=== PATIENT | male | born 1960 ===

== ENCOUNTER 2016-08-30 14:04 | Emergency (ER) | payer MEDICAID, OTHER ==
[2016-08-30 14:04] VITALS: BMI 23.6
[2016-08-30 14:27] VITALS: BP 133/86; PULSE 73; RESP 16; TEMP 98.2; O2SAT 98
--- NOTE | 2016-08-30 14:49 | C.PDOC ---
History Of Present Illness 55 year old patient, with a past medical history of Anxiety, GERD, Hiatal Hernia , Migraine, Paranoia, Rheumatoid Arthritis, and Schizophrenia, presents to the ED complaining of swelling of a large right inguinal-scrotal hernia. Patient was seen a year ago by Dr. Huffman for the same complaint. Patient refused surgery at that time. He notes the hernia comes and goes, but is not incarcerated. Patient has been seen here multiple times for a psych related complaint. Patient denies fever, nausea, vomiting, abdominal pain, or urinary symptoms. Time Seen by Provider: 08/30/16 14:37 Chief Complaint (Nursing): Abdominal Pain History Per: Patient History/Exam Limitations: no limitations Onset/Duration Of Symptoms: Worse Since (today) Current Symptoms Are (Timing): Still Present Context: Other Severity: None Pain Scale Rating Of: 0 Exacerbating Factors: None Alleviating Factors: None Last Bowel Movement: Today Recent travel outside of the [place]: No Past Medical History Reviewed: Historical Data, Nursing Documentation, Vital Signs Vital Signs: Last Vital Signs Temp 98.2 F 08/30/16 14:24 Pulse 73 08/30/16 14:24 Resp 16 08/30/16 14:24 BP 133/86 08/30/16 14:24 Pulse Ox 98 08/30/16 15:20 - Medical History PMH: Anxiety, GERD, Hiatal Hernia, Migraine, Paranoia, Rheumatoid Arthritis, Schizophrenia Surgical History: Appendectomy Family History: States: Unknown Family Hx - Social History Hx Tobacco Use: Yes Hx Alcohol Use: No Hx Substance Use: No - Immunization History Hx Tetanus Toxoid Vaccination: No Hx Influenza Vaccination: No Hx Pneumococcal Vaccination: No Review Of Systems Except As Marked, All Systems Reviewed And Found Negative. Constitutional: Negative for: Fever Gastrointestinal: Negative for: Nausea, Vomiting, Abdominal Pain Genitourinary: Positive for: Other (large inguinal scrotal hernia). Negative for: Dysuria, Hematuria Physical Exam - Physical Exam Appears: Non-toxic, No Acute Distress Skin: Warm, Dry Head: Atraumatic, Normacephalic Neck: Normal ROM, Supple Chest: Symmetrical Cardiovascular: Rhythm Regular Respiratory: Normal Breath Sounds, No Rales, No Rhonchi, No Wheezing Gastrointestinal/Abdominal: Soft, No Tenderness, No Guarding, No Rebound Back: Normal Inspection Male Genital: No Testicular Tenderness, No Testicular Swelling, No Inguinal Tenderness, No Inguinal Swelling, No Scrotal Swelling, Other (large right scrotal hernia; non-tender; reducible) Extremity: Normal ROM Neurological/Psych: Oriented x3, Normal Speech, Normal Cognition Gait: Steady ED Course And Treatment O2 Sat by Pulse Oximetry: 98 (room air) Pulse Ox Interpretation: Normal Progress Note: Patient is discharged and instructed to follow up with Dr. Huffman in the clinic for further evaluation. Return if symptoms worsen. On re- evaluation abdomen soft non-tender Reassessment Condition: Unchanged Disposition - Disposition Referrals: [facility] [Outside] [facility] [Outside] Yisel Huffman MD [Staff Provider] - Disposition: HOME/ ROUTINE Disposition Time: 15:45 Condition: STABLE Additional Instructions: Follow up with Dr Huffman for further evaluation Follow up with clinic for further evaluation Return to ED if any increase symptoms Instructions: Inguinal Hernia (ED) - POA Present On Arrival: None - Clinical Impression Clinical Impression: Inguinal hernia - PA / ARCGIS DEVELOPER / Resident Statement MD/DO has reviewed & agrees with the documentation as recorded. - Scribe Statement The provider has reviewed the documentation as recorded by the Scribe Brea Galo All medical record entries made by the Scribe were at my direction and personally dictated by me. I have reviewed the chart and agree that the record accurately reflects my personal performance of the history, physical exam, medical decision making, and the department course for this patient. I have also personally directed, reviewed, and agree with the discharge instructions and disposition.
== END 2016-08-30 15:11 | disposition home or self-care (01) ==
LOC: C.ER 14:04
DX: K40.90 Unilateral inguinal hernia, without obstruction or gangrene, not specified as recurrent (principal); M06.9 Rheumatoid arthritis, unspecified

== ENCOUNTER 2016-10-20 13:35 | Emergency (ER) | payer MEDICAID, OTHER ==
[2016-10-20 13:35] VITALS: BMI 23.6
[2016-10-20 13:41] VITALS: BP 150/96; PULSE 76; RESP 18; TEMP 98.1; O2SAT 98
--- NOTE | 2016-10-20 14:06 | C.PDOC ---
History Of Present Illness 56 yo mlae, hx of schziophrenia, presents requesting refills of his medications. pt has had multiple visits for simlar. no si/hi/hallucinations. Time Seen by Provider: 10/20/16 13:45 Chief Complaint (Nursing): Med Refill Past Medical History Reviewed: Historical Data, Vital Signs Vital Signs: Last Vital Signs Temp 98.1 F 10/20/16 13:38 Pulse 76 10/20/16 13:38 Resp 18 10/20/16 13:38 BP 150/96 H 10/20/16 13:38 Pulse Ox 98 10/20/16 14:08 - Medical History PMH: Anxiety, Depression, GERD, Hiatal Hernia, Migraine, Paranoia, Rheumatoid Arthritis, Schizophrenia Denies: Chronic Kidney Disease Surgical History: Appendectomy Family History: States: Unknown Family Hx - Social History Hx Tobacco Use: Yes Hx Alcohol Use: No Hx Substance Use: No - Immunization History Hx Tetanus Toxoid Vaccination: No Hx Influenza Vaccination: No Hx Pneumococcal Vaccination: No Review Of Systems Except As Marked, All Systems Reviewed And Found Negative. Physical Exam - Physical Exam Appears: Well, Non-toxic, Other (listen to ipod in nad) Skin: Warm, Dry Head: Atraumatic, Normacephalic Neck: Normal Cardiovascular: Rhythm Regular Respiratory: Normal Breath Sounds Neurological/Psych: Oriented x3, Normal Speech, Other (no si hi ) ED Course And Treatment O2 Sat by Pulse Oximetry: 98 Medical Decision Making Medical Decision Making: med refills Disposition - Disposition Referrals: [facility] [Outside] [facility] [Outside] [facility] [Outside] Disposition: HOME/ ROUTINE Disposition Time: 14:07 Condition: STABLE Additional Instructions: please follow up with your doctor. returnto er with worsening symptoms or concerns. Prescriptions: Benztropine [Cogentin] 1 mg PO DAILY #14 tab Famotidine [Pepcid] 20 mg PO DAILY #20 tab Perphenazine 8 mg PO DAILY #14 tab Perphenazine 16 mg PO DAILY #14 tab Instructions: Medicine Refill (ED) - Clinical Impression Clinical Impression: Medication refill
== END 2016-10-20 14:23 | disposition home or self-care (01) ==
LOC: C.ER 13:35
DX: Z76.0 Encounter for issue of repeat prescription (principal)

== ENCOUNTER 2016-11-29 08:18 | Emergency (ER) | payer MEDICAID, OTHER ==
[2016-11-29 08:18] VITALS: BMI 23.6
[2016-11-29 08:25] VITALS: BP 146/89; PULSE 74; RESP 18; TEMP 98; O2SAT 97
--- NOTE | 2016-11-29 08:48 | C.PDOC ---
History Of Present Illness 56 y/o male presents to ED who states he ran out of his prescription for Pepcid. Denies any physical complaints. Notes he cannot afford OTC Pepcid. Time Seen by Provider: 11/29/16 08:23 Chief Complaint (Nursing): Med Refill History Per: Patient History/Exam Limitations: no limitations Current Symptoms Are (Timing): Still Present Pain Scale Rating Of: 0 Recent travel outside of the [place]: No Past Medical History Reviewed: Historical Data, Nursing Documentation, Vital Signs Vital Signs: Last Vital Signs Temp 98 F 11/29/16 08:21 Pulse 74 11/29/16 08:21 Resp 18 11/29/16 08:21 BP 146/89 11/29/16 08:21 Pulse Ox 97 11/29/16 08:55 - Medical History PMH: Anxiety, Depression, GERD, Hiatal Hernia, Migraine, Paranoia, Rheumatoid Arthritis, Schizophrenia Surgical History: Appendectomy Family History: States: Unknown Family Hx - Social History Hx Tobacco Use: Yes Hx Alcohol Use: No Hx Substance Use: No - Immunization History Hx Tetanus Toxoid Vaccination: No Hx Influenza Vaccination: No Hx Pneumococcal Vaccination: No Review Of Systems Except As Marked, All Systems Reviewed And Found Negative. Constitutional: Negative for: Fever, Chills Cardiovascular: Negative for: Chest Pain Respiratory: Negative for: Cough, Shortness of Breath Gastrointestinal: Negative for: Nausea, Vomiting, Abdominal Pain Skin: Negative for: Rash Physical Exam - Physical Exam Appears: Non-toxic, No Acute Distress Skin: Normal Color, Warm, Dry Head: Atraumatic, Normacephalic Oral Mucosa: Moist Chest: Symmetrical Cardiovascular: Rhythm Regular, No Murmur Respiratory: Normal Breath Sounds, No Rales, No Rhonchi, No Wheezing Gastrointestinal/Abdominal: Soft, No Tenderness, No Guarding, No Rebound Back: Normal Inspection Extremity: Normal ROM, Capillary Refill (< 2 sec.) Neurological/Psych: Oriented x3, Normal Speech, Normal Cognition ED Course And Treatment O2 Sat by Pulse Oximetry: 97 (RA) Pulse Ox Interpretation: Normal Progress Note: Pt given prescription for Pepcid. In no acute distress. Advised f /u with clinic. Reassessment Condition: Improved Disposition Counseled Patient/Family Regarding: Need For Followup, Rx Given - Disposition Referrals: [facility] [Outside] [facility] [Outside] Disposition: HOME/ ROUTINE Disposition Time: 09:00 Condition: STABLE Additional Instructions: Follow up with clinic for further evaluation Prescriptions: Famotidine [Pepcid AC] 20 mg PO BID #30 tablet Instructions: Medicine Refill (ED) Forms: [place] [employer] (Belgian) - POA Present On Arrival: None - Clinical Impression Clinical Impression: Medication refill, GERD (gastroesophageal reflux disease) - PA / REFRIGERATOR CABINETMAKER / Resident Statement MD/DO has reviewed & agrees with the documentation as recorded. - Scribe Statement The provider has reviewed the documentation as recorded by the Jaisonibdemian Mcdonald All medical record entries made by the June were at my direction and personally dictated by me. I have reviewed the chart and agree that the record accurately reflects my personal performance of the history, physical exam, medical decision making, and the department course for this patient. I have also personally directed, reviewed, and agree with the discharge instructions and disposition.
== END 2016-11-29 09:04 | disposition home or self-care (01) ==
LOC: C.ER 08:18
DX: Z76.0 Encounter for issue of repeat prescription (principal); K21.9 Gastro-esophageal reflux disease without esophagitis

== ENCOUNTER 2017-07-20 20:58 | Emergency (ER) | payer MEDICAID, OTHER ==
[2017-07-20 20:59] VITALS: BMI 24.1
[2017-07-20 21:04] VITALS: RESP 18
[2017-07-20 21:26] LABS: BASO # 0.1 K/uL (0.0-0.2); BASO % 0.7 % (0.0-2.0); EOS # 0.3 K/uL (0.0-0.7); EOS % 2.6 % (0.0-4.0); HEMOGLOBIN 14.2 g/dL (12.0-18.0); LYMPH # 2.8 K/uL (1.0-4.3); LYMPH % 28.1 % (20.0-40.0); MEAN CELL VOLUME 95.8 fL (80.0-94.0); MEAN CORPUSCULAR HEMOGLOBIN 33.1 pg (27.0-31.0); MEAN CORPUSCULAR HGB CONC 34.5 g/dL (33.0-37.0); MEAN PLATELET VOLUME 8.4 fL (7.2-11.7); MONO # 0.8 K/uL (0.0-0.8); MONO % 8.1 % (0.0-10.0); NEUT # 6.1 K/uL (1.8-7.0); NEUT % 60.5 % (50.0-75.0); RBC 4.28 Mil/uL (4.40-5.90); RED CELL DISTRIBUTION WIDTH 12.6 % (11.5-14.5); WHITE BLOOD COUNT 10.1 K/uL (4.8-10.8)
[2017-07-20 21:36] LABS: URINE BILIRUBIN NEGATIVE (NEGATIVE); URINE BLOOD 1+ (NEGATIVE); URINE CLARITY Clear (Clear); URINE COLOR Colorless (YELLOW); URINE GLUCOSE (UA) NORMAL (Normal); URINE LEUKOCYTE ESTERASE NEG Leu/uL (Negative); URINE PROTEIN NEGATIVE (NEGATIVE); URINE UROBILINOGEN NORMAL mg/dL (0.2-1.0)
[2017-07-20 21:48] LABS: BARBITURATES, UR NEGATIVE (NEGATIVE); BENZODIAZEPINES, UR NEGATIVE (NEGATIVE); OPIATES, UR NEGATIVE (NEGATIVE); PHENCYCLIDINE, UR NEGATIVE (NEGATIVE)
[2017-07-20 21:53] LABS: ALB/GLOB RATIO 1.4 (1.0-2.1); ALBUMIN 3.9 g/dL (3.5-5.0); ALT/SGPT 18 U/L (21-72); AST/SGOT 21 U/L (17-59); BLOOD UREA NITROGEN 14 mg/dL (9-20); CALCIUM 9.2 mg/dl (8.6-10.4); GFR AFRICAN-AMERICAN > 60; GFR NON-AFRICAN AMERICAN > 60
[2017-07-20 22:24] VITALS: BP 144/91; PULSE 68; TEMP 98.3; O2SAT 97
--- NOTE | 2017-07-20 23:51 | C.PDOC ---
History Of Present Illness 56 years old male with Hx of Schizophrenia presents to ED with complaints of feeling anxious after having a verbal argument with his sister which he lives with. Denies SI, HI, hallucinations, or any other physical complaints. Patient states he does not feel any danger being at home. Chief Complaint (Nursing): Psychiatric Evaluation History Per: Patient History/Exam Limitations: no limitations Onset/Duration Of Symptoms: Hrs Current Symptoms Are (Timing): Still Present Suicide/Self Injury Attempted (Context): None Modifying Factor(s): None Associated Symptoms: Anxiety. denies: Suicidal Thoughts, Suicidal Plan Involuntary Hold By: None Recent travel outside of the [place]: No Past Medical History Reviewed: Historical Data, Nursing Documentation, Vital Signs Vital Signs: Last Vital Signs Temp 98.3 F 07/20/17 22:23 Pulse 68 07/20/17 22:23 Resp 18 07/20/17 22:23 BP 144/91 H 07/20/17 22:23 Pulse Ox 97 07/20/17 23:52 - Medical History PMH: Anxiety, Depression, GERD, Hiatal Hernia, Migraine, Paranoia, Rheumatoid Arthritis, Schizophrenia Surgical History: Appendectomy Family History: States: Unknown Family Hx - Social History Hx Tobacco Use: Yes Hx Alcohol Use: No Hx Substance Use: No - Immunization History Hx Tetanus Toxoid Vaccination: No Hx Influenza Vaccination: No Hx Pneumococcal Vaccination: No Review Of Systems Constitutional: Negative for: Fever, Chills Gastrointestinal: Negative for: Nausea, Vomiting, Abdominal Pain, Diarrhea Neurological: Negative for: Weakness, Numbness Psych: Positive for: Anxiety. Negative for: Suicidal ideation Physical Exam - Physical Exam Appears: Well, Non-toxic, No Acute Distress Skin: Normal Color, Warm, Dry Head: Atraumatic, Normacephalic Eye(s): bilateral: Normal Inspection Oral Mucosa: Moist Neck: Supple Chest: Symmetrical, No Tenderness Cardiovascular: Rhythm Regular Respiratory: No Decreased Breath Sounds, No Rales, No Rhonchi, No Wheezing Extremity: Normal ROM Extremity: Bilateral: Normal Color And Temperature, Normal ROM Neurological/Psych: Oriented x3, Normal Speech, Normal Cognition Gait: Steady ED Course And Treatment - Laboratory Results Result Diagrams: 07/20/17 21:21 07/20/17 21:21 O2 Sat by Pulse Oximetry: 97 (RA) Pulse Ox Interpretation: Normal Disposition - Disposition Referrals: Mitchell Pickard MD [Staff Provider] - Disposition: HOME/ ROUTINE Disposition Time: 20:20 Condition: GOOD Additional Instructions: Thank you for letting us take care of you today. The emergency medical care you received today was directed at your acute symptoms. If you were prescribed any medication, please fill it and take as directed. It may take several days for your symptoms to resolve. Return to the Emergency Department if your symptoms worsen, do not improve, or if you have any other problems. Please contact your doctor or call one of the physicians/clinics you have been referred to that are listed on the Patient Visit Information form that is included in your discharge packet. Bring any paperwork you were given at discharge with you along with any medications you are taking to your follow up visit. Our treatment cannot replace ongoing medical care by a primary care provider (PCP) outside of the emergency department. Thank you for allowing the [facility] team to be part of your care today. Follow up with your psychiatrist in 2-3 days for re-evaluation and further management. Instructions: Generalized Anxiety Disorder Forms: [employer] (Setswana) - Clinical Impression Clinical Impression: Anxiety - Scribe Statement The provider has reviewed the documentation as recorded by the Scribdemian Wilson All medical record entries made by the Scribe were at my direction and personally dictated by me. I have reviewed the chart and agree that the record accurately reflects my personal performance of the history, physical exam, medical decision making, and the department course for this patient. I have also personally directed, reviewed, and agree with the discharge instructions and disposition.
== END 2017-07-20 22:51 | disposition home or self-care (01) ==
LOC: C.ER 20:58
DX: F41.9 Anxiety disorder, unspecified (principal)

== ENCOUNTER 2017-11-24 08:38 | Emergency (ER) | payer MEDICAID, OTHER ==
[2017-11-24 08:39] VITALS: BMI 23.3
[2017-11-24 09:01] VITALS: BP 146/93; PULSE 73; RESP 18; TEMP 98; O2SAT 98
--- NOTE | 2017-11-24 09:14 | C.PDOC ---
History Of Present Illness Patient presents to ED requesting refills of his medications, states his last dose was last night. Patient has PMHx of paranoid schizophrenia, his psychiatrist is Dr. Pickard at [facility]. He has a scheduled appointment on Sunday () for his refills, but is worried about missing doses during the weekend. Patient denies current symptoms, including SI/HI, hallucinations, etc. Time Seen by Provider: 11/24/17 09:03 Chief Complaint (Nursing): Med Refill History Per: Patient History/Exam Limitations: no limitations Severity: None Past Medical History Reviewed: Historical Data, Nursing Documentation, Vital Signs Vital Signs: Last Vital Signs Temp 98 F 11/24/17 08:53 Pulse 73 11/24/17 08:53 Resp 18 11/24/17 08:53 BP 146/93 H 11/24/17 08:53 Pulse Ox 98 11/24/17 09:15 - Medical History PMH: Anxiety, Depression, GERD, Hiatal Hernia, Migraine, Paranoia, Rheumatoid Arthritis, Schizophrenia Surgical History: Appendectomy Family History: States: No Known Family Hx - Social History Hx Tobacco Use: Yes Hx Alcohol Use: No Hx Substance Use: No - Immunization History Hx Tetanus Toxoid Vaccination: No Hx Influenza Vaccination: No Hx Pneumococcal Vaccination: No Review Of Systems Constitutional: Negative for: Fever, Chills Cardiovascular: Negative for: Chest Pain Respiratory: Negative for: Shortness of Breath Gastrointestinal: Negative for: Nausea, Vomiting, Abdominal Pain Neurological: Negative for: Headache Psych: Negative for: Anxiety, Depression, Psychosis, Suicidal ideation Physical Exam - Physical Exam Appears: Well, Non-toxic, No Acute Distress Eye(s): bilateral: Normal Inspection Oral Mucosa: Moist Cardiovascular: Rhythm Regular Respiratory: Normal Breath Sounds, No Rales, No Rhonchi, No Wheezing Neurological/Psych: Oriented x3, Normal Speech, Normal Cognition Gait: Steady ED Course And Treatment O2 Sat by Pulse Oximetry: 98 (RA) Pulse Ox Interpretation: Normal Progress Note: Confirmed that patient has scheduled appt at [facility] on Sunday with Dr. Pickard. Rxs for two days of medications given to patient, and he was instructed to follow up as scheduled without fail. He understands he should return to ED if he has any concerning symptoms. Disposition Counseled Patient/Family Regarding: Diagnosis, Need For Followup, Rx Given - Disposition Referrals: Mitchell Pickard MD [Staff Provider] - [facility] [Outside] Disposition: HOME/ ROUTINE Disposition Time: 09:10 Condition: STABLE Additional Instructions: FOLLOW UP WITH DR PICKARD ON SUNDAY SCHEDULED RETURN TO ER IF YOU HAVE ANY CONCERNING SYMPTOMS Prescriptions: Benztropine [Benztropine Mesylate] 1 mg PO HS #2 tab Perphenazine 16 mg PO HS #4 tab Forms: [facility] (Turkish), General Discharge Instructions Print Language: KHMER - POA Present On Arrival: None - Clinical Impression Clinical Impression: Medication refill, Schizophrenia
== END 2017-11-24 09:25 | disposition home or self-care (01) ==
LOC: C.ER 08:38
DX: F20.9 Schizophrenia, unspecified (principal); Z76.0 Encounter for issue of repeat prescription

== ENCOUNTER 2018-02-27 11:56 | Emergency (ER) | payer MEDICAID, OTHER ==
[2018-02-27 11:56] VITALS: BMI 23.3
[2018-02-27 12:05] VITALS: BP 144/89; PULSE 72; RESP 18; TEMP 97.5; O2SAT 98
== END 2018-02-27 12:26 | disposition left against medical advice (07) ==
LOC: C.ER 11:56
DX: Z02.89 Encounter for other administrative examinations (principal); Z76.0 Encounter for issue of repeat prescription

== ENCOUNTER 2018-04-28 20:59 | Emergency (ER) | payer OTHER, MEDICAID | END 2018-04-28 22:25 | disposition home or self-care (01) | LOC: C.ER 20:59 ==

== ENCOUNTER 2018-04-30 18:10 | Emergency (ER) | payer OTHER ==
[2018-04-30 18:10] VITALS: BMI 23.3
[2018-04-30 18:21] VITALS: BP 144/93; PULSE 70; TEMP 98; O2SAT 97
--- NOTE | 2018-04-30 19:16 | C.PDOC ---
History Of Present Illness 57 year old male, whose past medical history includes schizophrenia, presents to the ED for medication refill. Patient states he takes Perphenazine 16mg daily. He took his last dose yesterday. Patient went to the pharmacy, which was unable to provide him with a new dose today. Patient presents to the ED to receive his dose for the evening, until he is able to get his medication tomorrow. He denies depression, auditory/visual hallucinations, suicidal/homicidal ideation, pain, extremity numbness/weakness or any other complaints at this time. Time Seen by Provider: 04/30/18 18:23 Chief Complaint (Nursing): Med Refill History Per: Patient History/Exam Limitations: no limitations Onset/Duration Of Symptoms: Hrs Current Symptoms Are (Timing): Still Present Additional History Per: Patient Past Medical History Reviewed: Historical Data, Nursing Documentation, Vital Signs Vital Signs: Last Vital Signs Temp 98 F 04/30/18 18:17 Pulse 70 04/30/18 18:17 Resp 18 04/30/18 18:17 BP 144/93 H 04/30/18 18:17 Pulse Ox 97 04/30/18 18:17 - Medical History PMH: Anxiety, Depression, GERD, Hiatal Hernia, Migraine, Paranoia, Rheumatoid Arthritis, Schizophrenia Denies: Chronic Kidney Disease Surgical History: Appendectomy Family History: States: Unknown Family Hx - Social History Hx Tobacco Use: Yes Hx Alcohol Use: No Hx Substance Use: No - Immunization History Hx Tetanus Toxoid Vaccination: No Hx Influenza Vaccination: No Hx Pneumococcal Vaccination: No Review Of Systems Neurological: Negative for: Weakness, Numbness Psych: Positive for: Other (medication refill). Negative for: Depression, Suicidal ideation Physical Exam - Physical Exam Appears: Non-toxic, No Acute Distress Skin: Normal Color, Warm, Dry, No Rash Head: Atraumatic, Normacephalic Eye(s): bilateral: Normal Inspection Oral Mucosa: Moist Throat: No Erythema Neck: Normal ROM, Supple Chest: Symmetrical, No Deformity Cardiovascular: Rhythm Regular, No Friction Rub Respiratory: No Accessory Muscle Use Extremity: Normal ROM, No Swelling Neurological/Psych: Oriented x3, Normal Speech, Normal Cognition, Normal Motor Gait: Steady ED Course And Treatment O2 Sat by Pulse Oximetry: 97 (on RA) Pulse Ox Interpretation: Normal Medical Decision Making Medical Decision Making: Progress: Perphenazine PO given. Disposition - Disposition Referrals: [facility] [Outside] [facility] [Outside] Disposition: HOME/ ROUTINE Disposition Time: 19:14 Condition: STABLE Additional Instructions: Follow up with the medical doctor within 1-2 days, Return if worsened. Instructions: Medication Safety, Adult Forms: [facility] (Turkish) - Clinical Impression Clinical Impression: Medication refill - PA / HASSOCK MAKER / Resident Statement MD/DO has reviewed & agrees with the documentation as recorded. - Scribe Statement The provider has reviewed the documentation as recorded by the Scribe (Mary Galo) All medical record entries made by the Scribe were at my direction and personally dictated by me. I have reviewed the chart and agree that the record accurately reflects my personal performance of the history, physical exam, medical decision making, and the department course for this patient. I have also personally directed, reviewed, and agree with the discharge instructions and disposition.
[2018-04-30 19:55] VITALS: RESP 20
== END 2018-04-30 19:54 | disposition home or self-care (01) ==
LOC: C.ER 18:10
DX: Z76.0 Encounter for issue of repeat prescription (principal)
CPT/HCPCS: 99282; Q0175

== ENCOUNTER 2018-05-30 21:51 | Inpatient (IN) | payer MEDICAID, OTHER ==
[2018-05-30 21:51] VITALS: BMI 23.3
[2018-05-30 23:16] LABS: BASO # 0.1 K/uL (0.0-0.2); BASO % 1.1 % (0.0-2.0); EOS # 0.3 K/uL (0.0-0.7); EOS % 2.5 % (0.0-4.0); HEMOGLOBIN 14.8 g/dL (12.0-18.0); LYMPH # 2.3 K/uL (1.0-4.3); LYMPH % 22.1 % (20.0-40.0); MEAN CELL VOLUME 95.7 fL (80.0-94.0); MEAN CORPUSCULAR HEMOGLOBIN 32.1 pg (27.0-31.0); MEAN CORPUSCULAR HGB CONC 33.5 g/dL (33.0-37.0); MEAN PLATELET VOLUME 8.5 fL (7.2-11.7); MONO # 0.9 K/uL (0.0-0.8); MONO % 8.9 % (0.0-10.0); NEUT # 6.7 K/uL (1.8-7.0); NEUT % 65.4 % (50.0-75.0); RBC 4.61 Mil/uL (4.40-5.90); RED CELL DISTRIBUTION WIDTH 12.5 % (11.5-14.5); WHITE BLOOD COUNT 10.2 K/uL (4.8-10.8)
[2018-05-30 23:21] LABS: SQUAMOUS EPITHIAL < 1 /hpf (0-5); URINE BILIRUBIN NEGATIVE (NEGATIVE); URINE BLOOD 1+ (NEGATIVE); URINE CLARITY Hazy (Clear); URINE COLOR Yellow (YELLOW); URINE GLUCOSE (UA) NORMAL (Normal); URINE LEUKOCYTE ESTERASE NEG Leu/uL (Negative); URINE PROTEIN NEGATIVE (NEGATIVE); URINE UROBILINOGEN NORMAL mg/dL (0.2-1.0)
[2018-05-30 23:28] LABS: ACETAMINOPHEN < 10.0 ug/mL (10.0-30.0); SALICYLATE < 1.0 mg/dL 1
[2018-05-30 23:29] LABS: ALB/GLOB RATIO 1.8 (1.0-2.1); ALBUMIN 4.5 g/dL (3.5-5.0); ALT/SGPT 18 U/L (21-72); AST/SGOT 22 U/L (17-59); BLOOD UREA NITROGEN 17 mg/dL (9-20); CALCIUM 9.5 mg/dl (8.6-10.4); GFR NON-AFRICAN AMERICAN > 60
[2018-05-30 23:33] LABS: BARBITURATES, UR NEGATIVE (NEGATIVE); BENZODIAZEPINES, UR NEGATIVE (NEGATIVE); OPIATES, UR NEGATIVE (NEGATIVE); PHENCYCLIDINE, UR NEGATIVE (NEGATIVE)
--- NOTE | 2018-05-31 00:17 | C.PDOC ---
History Of Present Illness 57 y/o male with a PMHx of schizophrenia presents to the ED complaining that he is hearing voices. He denies any visual hallucinations. States voices are not telling him to harm self or others. Patient denies having any physical comp laints. Time Seen by Provider: 05/30/18 22:56 Chief Complaint (Nursing): Psychiatric Evaluation History Per: Patient History/Exam Limitations: no limitations Onset/Duration Of Symptoms: Days Current Symptoms Are (Timing): Still Present Suicide/Self Injury Attempted (Context): None Modifying Factor(s): None Associated Symptoms: Other (Hearing voices) Past Medical History Reviewed: Historical Data, Nursing Documentation, Vital Signs Vital Signs: Last Vital Signs Temp 98.7 F 05/30/18 21:55 Pulse 74 05/30/18 21:55 Resp 19 05/30/18 21:55 BP 160/100 H 05/30/18 21:55 Pulse Ox 98 05/30/18 21:55 - Medical History PMH: Anxiety, Depression, GERD, Hiatal Hernia, Migraine, Paranoia, Rheumatoid Arthritis, Schizophrenia Denies: Chronic Kidney Disease Surgical History: Appendectomy Family History: States: Unknown Family Hx - Social History Hx Tobacco Use: Yes Hx Alcohol Use: No Hx Substance Use: No - Immunization History Hx Tetanus Toxoid Vaccination: No Hx Influenza Vaccination: No Hx Pneumococcal Vaccination: No Review Of Systems Constitutional: Negative for: Fever Cardiovascular: Negative for: Chest Pain Respiratory: Negative for: Shortness of Breath Gastrointestinal: Negative for: Abdominal Pain Neurological: Negative for: Weakness, Dizziness Psych: Positive for: Other (Hearing voices). Negative for: Suicidal ideation Physical Exam - Physical Exam Appears: Non-toxic, No Acute Distress, Other (Elderly white male) Skin: Warm, Dry, No Rash Head: Atraumatic, Normacephalic Eye(s): bilateral: Normal Inspection Oral Mucosa: Moist Neck: Normal ROM Chest: Symmetrical Cardiovascular: Rhythm Regular, No Murmur Respiratory: Normal Breath Sounds, No Accessory Muscle Use Gastrointestinal/Abdominal: Soft, No Tenderness, No Distention Extremity: Bilateral: Atraumatic, Normal ROM Pulses: Left Dorsalis Pedis: Normal, Right Dorsalis Pedis: Normal Neurological/Psych: Oriented x3, Other (Calm, cooperative) ED Course And Treatment - Laboratory Results Result Diagrams: 05/30/18 23:13 05/30/18 23:13 Lab Results: Total Bilirubin 0.5 mg/dL (0.2-1.3) 05/30/18 23:13 AST 22 U/L (17-59) 05/30/18 23:13 ALT 18 U/L (21-72) L 05/30/18 23:13 Alkaline Phosphatase 57 U/L (38-126) 05/30/18 23:13 Total Protein 6.9 g/dL (6.3-8.3) 05/30/18 23:13 Albumin 4.5 g/dL (3.5-5.0) 05/30/18 23:13 Globulin 2.5 gm/dL (2.2-3.9) 05/30/18 23:13 Albumin/Globulin Ratio 1.8 (1.0-2.1) 05/30/18 23:13 Urine Color Yellow (YELLOW) 05/30/18 23:13 Urine Clarity Hazy (Clear) 05/30/18 23:13 Urine pH 5.0 (5.0-8.0) 05/30/18 23:13 Ur Specific [place] 1.019 (1.003-1.030) 05/30/18 23:13 Urine Protein Negative mg/dL (NEGATIVE) 05/30/18 23:13 Urine Glucose (UA) Normal mg/dL (Normal) 05/30/18 23:13 Urine Ketones Trace mg/dL (NEGATIVE) 05/30/18 23:13 Urine Blood 1+ (NEGATIVE) H 05/30/18 23:13 Urine Nitrate Negative (NEGATIVE) 05/30/18 23:13 Urine Bilirubin Negative (NEGATIVE) 05/30/18 23:13 Urine Urobilinogen Normal mg/dL (0.2-1.0) 05/30/18 23:13 Ur Leukocyte Esterase Neg Abad/uL (Negative) 05/30/18 23:13 Urine WBC (Auto) < 1 /hpf (0-5) 05/30/18 23:13 Urine RBC (Auto) 11 /hpf (0-3) H 05/30/18 23:13 Ur Squamous Epith Cells < 1 /hpf (0-5) 05/30/18 23:13 Lab Interpretation: Normal (tox neg.) O2 Sat by Pulse Oximetry: 98 (RA) Pulse Ox Interpretation: Normal Medical Decision Making Medical Decision Making: Plan: Labs ordered for medical clearance. Labs reviewed, patient medically cleared for admission. 00:16 spoke w/ sand control worker, patient accepted under Dr. Pickard Disposition Doctor Will See Patient In The: Hospital Counseled Patient/Family Regarding: Studies Performed, Diagnosis - Disposition Disposition: HOSPITALIZED Disposition Time: 00:16 Condition: GOOD - Clinical Impression Clinical Impression: Schizophrenia - Scribe Statement The provider has reviewed the documentation as recorded by the Jaisonibdemian Bruner Provider Attestation: All medical record entries made by the June were at my direction and personally dictated by me. I have reviewed the chart and agree that the record accurately reflects my personal performance of the history, physical exam, medical decision making, and the department course for this patient. I have also personally directed, reviewed, and agree with the discharge instructions and disposition.
--- NOTE | 2018-05-31 04:55 | PCM.BM ---
<Grisel Zambrano - Last Filed: 05/31/18 04:52> Treatment Plan Problems - Problems identified on initial assessmt Deffective copin skills Date Initiated: 05/31/18 Time Initiated: 00:15 Date resolved: 05/31/18 Assessment reference: NA Status: Active Auditory hallucination Date Initiated: 05/31/18 Time Initiated: 00:15 Date resolved: 05/31/18 Assessment reference: NA Status: Active Treatment assets and liabiliti Patient Assests: cooperative, insightful, self-reliant, negotiates basic needs, financial stabiity - Milieu Protocol Maintain good personal hygiene: daily Encourage regular showers, daily Remind patient to perform daily oral care, daily Assist patient to perform ADL's Conduct patient checks and document Observation sheet: Q15 minutes Maintain personal safety: every shift Educate patient to report safety concerns to staff, every shift Monitor environment for contraband/sharps Medication safety: Monitor for expected outcome, potential side effects: every shift, Assess barriers to learning: every shift, Assess readiness for medication education: every shift <Sandy Jane - Last Filed: 05/31/18 11:15> - Diagnosis (1) Schizophrenia Status: Acute Interventions: 05/31/18 11:15 * Assess/adjust medications daily and /or as needed * See patient on an individual basis 7x/week to assess status of hallucinations * Discuss risks, benefits, side effects and alternatives of medications * <Jess Zazueta - Last Filed: 05/31/18 11:58> Family Contact Family involvement: Family/SO is involved Family contact: Patient declines to allow family contact at present - Goals for Treatment Patient goals for treatment: "I need an outpatient program." Discharge/Continuing Care - Education Needs Education Needs: Patient Medication, Patient Coping Skills - Discharge Discharge Criteria: Tolerates medication w/o severe side effects, Reduction of target symptoms Discharge to:: Home, With Family - Treatment Team Participation Discussed with Family/SO: No Was Patient/Family/SO present at Treatment Team Meeting: Yes
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
[2018-06-01 06:48] VITALS: O2SAT 98
[2018-06-03 06:27] VITALS: RESP 18; TEMP 97.8
[2018-06-03] MEDS ORDERED: Pneumococcal 23-Valent Vaccine IM ONE (10:00)
[2018-06-03] MEDS ORDERED: Influenza Vaccine 60 mcg/0.5 mL SYR (4YR UP) IM ONE (10:00)
--- NOTE | 2018-06-03 10:46 | PCM.PYCHPN ---
Psychiatric Progress Note - Psychiatric Progress Note Patient seen today, length of contact: 15 min Patient Chief Complaint: I was hearing voices.' Medication Change: Yes Medical Record Reviewed: Yes Mental Status Examination - Cognitive Function Orientation: Person, Place, Situation, Time Memory: Intact Attention: WNL Concentration: Poor Association: WNL Fund of Knowledge: Poor - Mood Mood: Anxious - Affect Affect: Constricted, Depressed - Speech Speech: Soft - Formal Thought Process Formal Thought Process: Delusions - Suicidal Ideation Suicidal Ideation: No - Homicidal Ideation Homicidal Ideation: No Goal/Treatment Plan - Goal/Treatment Plan Need for Continued Stay: Remain at risks for inpatient hospitalization Progress Toward Problem(s) and Goals/Treatment Plan: Schizophrenia paranoid type continuous -CBT -Psychoeducation --Supportive therapy and group therapy -Perphenzaine for psychosis -Neurontin for augmentation -Trazodone for insomnia -Benztropine for EPS
[2018-06-04 06:48] VITALS: BP 129/82; PULSE 75
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
== END 2018-06-04 13:30 | disposition home or self-care (01) | DRG 430 ==
LOC: C.ER 21:51 → C.5E 05-31 00:17
PROC: GZ3ZZZZ Medication Management (ICD-10-PCS; principal; 2018-05-31)
PROC: GZHZZZZ Group Psychotherapy (ICD-10-PCS; 2018-05-31)
PROC: GZ56ZZZ Individual Psychotherapy, Supportive (ICD-10-PCS; 2018-05-31)
DX: F20.0 Paranoid schizophrenia (principal); F32.9 Major depressive disorder, single episode, unspecified; G47.00 Insomnia, unspecified; K21.9 Gastro-esophageal reflux disease without esophagitis; M06.9 Rheumatoid arthritis, unspecified; F17.210 Nicotine dependence, cigarettes, uncomplicated

== ENCOUNTER 2018-08-25 10:20 | Emergency (ER) | payer MEDICAID, OTHER ==
[2018-08-25 10:26] VITALS: RESP 18; BMI 22.8
--- NOTE | 2018-08-25 11:18 | C.PDOC ---
History Of Present Illness 57 y/o male with schizophrenia, gerd, borderline dm, smoker, comes to ed c/o worsening gerd over last 3 days; pt taking famotidine without improvement; pt also reports feeling nauseous and 'palpitations' in last 3 days. no fever, cough or vomiting. Time Seen by Provider: 08/25/18 10:52 Chief Complaint (Nursing): Abdominal Pain History Per: Patient History/Exam Limitations: no limitations Onset/Duration Of Symptoms: Days (3) Current Symptoms Are (Timing): Still Present Associated Symptoms: denies: Fever, Chills, Nausea, Vomiting, Diarrhea, Chest Pain, Urinary Symptoms Past Medical History Reviewed: Historical Data, Nursing Documentation, Vital Signs Vital Signs: Last Vital Signs Temp 98.6 F 08/25/18 10:25 Pulse 72 08/25/18 10:25 Resp 18 08/25/18 10:25 BP 125/86 08/25/18 10:25 Pulse Ox 97 08/25/18 10:25 Primary Care Provider: Bharati Morrow - Medical History PMH: Anxiety, Depression, GERD, Hiatal Hernia, Migraine, Paranoia, Rheumatoid Arthritis, Schizophrenia Denies: Diabetes, Hepatitis, HIV, HTN, Chronic Kidney Disease, Seizures, Sexually Transmitted Disease Surgical History: Appendectomy - [facility] GROUP PSYCHOTHERAPY (05/31/18) INDIVIDUAL PSYCHOTHERAPY, SUPPORTIVE (05/31/18) MEDICATION MANAGEMENT (05/31/18) Family History: States: No Known Family Hx, Unknown Family Hx - Social History Hx Tobacco Use: Yes Hx Alcohol Use: No Hx Substance Use: Yes (Hx of marijuana) - Immunization History Hx Tetanus Toxoid Vaccination: No Hx Influenza Vaccination: No Hx Pneumococcal Vaccination: No Review Of Systems Constitutional: Negative for: Fever, Chills Cardiovascular: Positive for: Palpitations. Negative for: Chest Pain, Light Headedness Respiratory: Negative for: Cough, Shortness of Breath Gastrointestinal: Positive for: Nausea, Other (acid reflux ). Negative for: Vomiting, Diarrhea Genitourinary: Negative for: Dysuria, Hematuria Physical Exam - Physical Exam Appears: Non-toxic, No Acute Distress Skin: Warm, Dry, No Rash Head: Normacephalic Eye(s): bilateral: PERRL, EOMI Oral Mucosa: Moist Neck: Supple Chest: Symmetrical Cardiovascular: Rhythm Regular Respiratory: No Rales, No Rhonchi, No Wheezing Gastrointestinal/Abdominal: Soft, No Tenderness, No Guarding, No Rebound Neurological/Psych: Oriented x3, Normal Speech, Normal Cognition Gait: Steady ED Course And Treatment - Laboratory Results Result Diagrams: 08/25/18 11:23 08/25/18 11:23 ECG: Interpreted By Me, Viewed By Me ECG Rhythm: Sinus Bradycardia, R BBB Rate From EC O2 Sat by Pulse Oximetry: 97 (RA) Pulse Ox Interpretation: Normal Medical Decision Making Medical Decision Making: Plan - EKG - CXR - UA - Bloodwork 1305 pt with normal labs, neg troponin; pt has r bbb on ekg today, had incomplete r bbb on egk in 2014. pt feels better after Maalox., Lifestyle changes including smoking cessation and diet discussed with patient. pt advised to go to clinic in next 1-2 day for follow up and gi referral. will d/c famotidine and start on protonix. Disposition Counseled Patient/Family Regarding: Studies Performed, Diagnosis, Need For Fo llowup, Rx Given, Smoking Cessation - Disposition Referrals: [facility] [Outside] Disposition: HOME/ ROUTINE Disposition Time: 13:19 Condition: GOOD Additional Instructions: No alcohol, peppermint, caffeine, greasy or spicy foods. no acidy foods- like tomato sauce or citrus. No smoking, Follow up in medical clinic in next 1-2 days, Stop famotidine. Take pantoprozole instead. , Prescriptions: Pantoprazole Sodium [Protonix] 40 mg PO DAILY #30 tablet.dr Instructions: Gastritis (DC), Ulcer and Gastritis Diet Forms: [facility] (Gambian), General Discharge Instructions - Clinical Impression Clinical Impression: Gastritis - PA / [employer] / Resident Statement MD/DO has reviewed & agrees with the documentation as recorded. - Scribe Statement The provider has reviewed the documentation as recorded by the Scribe Peyton Menezes All medical record entries made by the Scribe were at my direction and personally dictated by me. I have reviewed the chart and agree that the record accurately reflects my personal performance of the history, physical exam, medical decision making, and the department course for this patient. I have also personally directed, reviewed, and agree with the discharge instructions and disposition.
[2018-08-25 11:32] LABS: BASO # 0.1 K/uL (0.0-0.2); BASO % 0.8 % (0.0-2.0); EOS # 0.2 K/uL (0.0-0.7); EOS % 2.4 % (0.0-4.0); HEMOGLOBIN 14.8 g/dL (12.0-18.0); LYMPH # 1.7 K/uL (1.0-4.3); LYMPH % 23.4 % (20.0-40.0); MEAN CELL VOLUME 97.2 fL (80.0-94.0); MEAN CORPUSCULAR HEMOGLOBIN 33.7 pg (27.0-31.0); MEAN CORPUSCULAR HGB CONC 34.7 g/dL (33.0-37.0); MEAN PLATELET VOLUME 8.5 fL (7.2-11.7); MONO # 0.7 K/uL (0.0-0.8); MONO % 8.9 % (0.0-10.0); NEUT # 4.8 K/uL (1.8-7.0); NEUT % 64.5 % (50.0-75.0); RBC 4.4 Mil/uL (4.40-5.90); RED CELL DISTRIBUTION WIDTH 12.9 % (11.5-14.5); WHITE BLOOD COUNT 7.5 K/uL (4.8-10.8)
[2018-08-25 11:34] LABS: URINE BACTERIA RARE (<OCC); URINE BILIRUBIN NEGATIVE (NEGATIVE); URINE BLOOD NEGATIVE (NEGATIVE); URINE CLARITY Clear (Clear); URINE COLOR Colorless (YELLOW); URINE GLUCOSE (UA) NORMAL (Normal); URINE LEUKOCYTE ESTERASE NEG Leu/uL (Negative); URINE PROTEIN NEGATIVE (NEGATIVE); URINE UROBILINOGEN NORMAL mg/dL (0.2-1.0)
[2018-08-25 11:44] LABS: ALB/GLOB RATIO 1.6 (1.0-2.1); ALBUMIN 4.2 g/dL (3.5-5.0); ALT/SGPT 18 U/L (21-72); AST/SGOT 21 U/L (17-59); BLOOD UREA NITROGEN 11 mg/dL (9-20); CALCIUM 9.8 mg/dl (8.6-10.4); GFR NON-AFRICAN AMERICAN > 60
[2018-08-25] MEDS ORDERED: Aluminum Hydroxide/Magnesium Hydroxide Susp (30 mL) PO STA (11:56)
[2018-08-25] MEDS ORDERED: Aluminum Hydroxide/Magnesium Hydroxide Susp (30 mL) ONE (12:17)
[2018-08-25 13:35] VITALS: BP 138/90; PULSE 60; TEMP 98
--- NOTE | 2018-08-25 13:46 | RAD ---
HISTORY: chest pain COMPARISON: Chest x-ray performed 10/01/15, CT chest without contrast performed 09/10/17 TECHNIQUE: Chest PA and lateral, 2 views FINDINGS: LUNGS: Mild left basilar atelectasis. No focal consolidation. Please note that chest x-ray has limited sensitivity for the detection of pulmonary masses. PLEURA: No significant pleural effusion identified. No definite pneumothorax . CARDIOVASCULAR: The cardiomediastinal silhouette appears within normal limits of size. No atherosclerotic calcification present. OSSEOUS STRUCTURES: No acute osseous abnormality identified. VISUALIZED UPPER ABDOMEN: Unremarkable. OTHER FINDINGS: None. IMPRESSION: Mild left basilar atelectasis.
[2018-08-25 18:29] VITALS: O2SAT 97
--- NOTE | 2018-08-26 15:25 | CARD ---
APPROVED REPORT Date of service: 08/25/2018 EKG Measurement Heart [id number] <Conclusion> Sinus bradycardia Right bundle branch block Abnormal ECG
== END 2018-08-25 13:34 | disposition home or self-care (01) ==
LOC: C.ER 10:20
DX: K29.70 Gastritis, unspecified, without bleeding (principal); K21.9 Gastro-esophageal reflux disease without esophagitis